=== PATIENT | female | born 2000 | race Caucasian/White ===

== ENCOUNTER 2020-06-13 09:39 | Outpatient (CLI) | payer BC ==
--- NOTE | 2020-06-13 11:56 | RAD ---
Exam: Gastrografin small bowel HISTORY: Abdominal pain and GI bleeding Comparison none FINDINGS: Initial skating carhop radiograph demonstrates a nonspecific bowel gas pattern. Scattered fecal mate rial in a nondistended, nondilated colon Patient was administered barium. Barium opacifies multiple normal caliber small bowel loops with a no rmal mucosal appearance. On the one hour and 30 minute image, there is contrast opacifying the cecum. Graded spot compression imaging was performed. Small bowel loops separate appropriately. Ileocecal ju nction has a normal appearance. IMPRESSION: 1. No mucosal abnormality with regards to small bowel loops. 2. Normal-appearing ileocecal junction.
== END 2020-06-13 09:40 | disposition home or self-care (01) ==
LOC: RAD 09:39
PROVIDERS: ATTEND Internal Medicine
DX: K92.2 Gastrointestinal hemorrhage, unspecified (principal); R10.84 Generalized abdominal pain
CPT/HCPCS: 74250

== ENCOUNTER 2020-06-24 21:47 | Emergency (ER) | payer BC ==
[2020-06-24] MEDS ORDERED: Ketorolac Tromethamine 30 MG/ML VIAL ONE (22:11)
[2020-06-24 22:45] LABS: #Basophils 0.1 thou/uL (0.0-0.2); #Eosinphils 0.1 thou/uL (0.0-0.7); #Lymphocytes 2.8 thou/uL (1.20-3.40); #Monocytes 0.7 thou/uL (0.11-0.59); #Neutrophils 7.6 thou/uL (1.40-6.50); %Basophils 0.8 % (0.0-1.0); %Eosinophils 1.1 % (0.0-10.0); %Lymphocytes 24.7 % (21.0-51.0); %Monocytes 6.1 % (0.0-10.0); %Neutrophils 67.4 % (42.0-75.0); Hemoglobin 13.9 g/dL (12.0-16.0); Mean Corpuscular HGB CONC 34.1 g/dL (32.0-36.0); Mean Corpuscular Hemoglobin 27.8 pg (27.0-31.0); Mean Corpuscular Volume 81.5 fL (78.0-98.0); Mean Platelet Volume 7.6 fL (7.4-10.4); Platelet Count 329 thou/uL (130-400); RBC Distribution Width 14.5 % (11.5-14.5); White Blood Cell (WBC) Count 11.3 thou/uL (4.8-10.8)
[2020-06-24 23:07] LABS: ALT (SGPT) 27 U/L (8-55); AST (SGOT) 55 U/L (5-34); Albumin 4.4 g/dL (3.5-5.0); Alkaline Phosphatase 78 U/L (40-110); Anion Gap 14 mmol/L (10-20); BUN (Urea Nitrogen) 7 mg/dL (7.0-18.7); Bilirubin, Total 0.4 mg/dL (0.2-1.2); Calc. Creatinine Clearance 0 mL/min (70-130); Calcium 9.3 mg/dL (7.8-10.44); Carbon Dioxide 26 mmol/L (22-29); Chloride 104 mmol/L (98-107); Globulin 3.1 g/dL (2.4-3.5); Glucose 90 mg/dL (70-105); Lipase 14 U/L (8-78); Potassium 3.6 mmol/L (3.5-5.1); Protein, Total 7.5 g/dL (6.0-8.3); Sodium 140 mmol/L (136-145)
[2020-06-24 23:18] LABS: BHCG - Serum Negative (NEGATIVE); Pregs Control Background? CLEAR/WHITE (CLR/WHITE); Pregs Control Bar Appear? YES (CONTROL BAR)
--- NOTE | 2020-06-24 23:41 | CT ---
CTA CHEST WITH CONTRAST: Date: 06/24/2020 COMPARISON: None. HISTORY: Status post upper and lower endoscopy with anesthesia. Pain in left breast and sudden onset of left c hest pain. The pain is worse with deep inspiration. TECHNIQUE: Multiple contiguous axial images were obtained in a CTA of the chest with contrast per pulmonary embo lism protocol. 3D oblique MIP reformats and direct coronal reformats were performed. FINDINGS: The pulmonary arteries are well opacified without filling defects to suggest pulmonary emboli. The he art is normal in size without focal cardiac abnormality. No focal infiltrates are seen. No pneumothorax or pleural effusions are seen. No suspicious pulmonary nodules are seen. The osseous structures are unremarkable. The patient has bilateral breast implants. The visualized garrett bdiaphragmatic structures are unremarkable. IMPRESSION: No evidence of pulmonary thromboembolism. POS: EAA
[2020-06-24 23:48] LABS: Bacteria/HPF 4+ HPF (None Seen); Bilirubin Negative (Negative); Blood, Urine Negative (Negative); Clarity Clear (Clear); Glucose, Urine (Dipstick) Normal (Negative); Ketone, Urine Negative (Negative); Leukocyte 25 Leu/uL (Negative); Nitrite Negative (Negative); Protein, Urine (Dipstick) Negative (Neg-Trace); RBC/HPF 0-3 HPF (0-3); Specific Gravity, Urine 1.005 (1.002-1.036); Squamous Epithelial 0-3 HPF (0-3); Urobilinogen Normal mg/dL (Less than 2)
== END 2020-06-24 23:53 | disposition home or self-care (01) ==
LOC: ERS 21:47
DX: R07.81 Pleurodynia (principal)
CPT/HCPCS: 71275; 80053; 81003; 81015; 83690; 83880; 84484; 84703; 85025; 93005; 96374; J1885

== ENCOUNTER 2020-06-25 19:40 | Emergency (ER) | payer BC ==
[2020-06-25] MEDS ORDERED: Ondansetron ODT 4 MG TAB ONE (20:08)
[2020-06-25 21:13] LABS: SARS-CoV-2 NAA Rapid Test Not Detected (NotDetected)
== END 2020-06-25 20:15 | disposition home or self-care (01) ==
LOC: ERS 19:40
DX: U07.1 COVID-19 (principal)
CPT/HCPCS: 0240U; 99283; Q0162